=== PATIENT | female | born 1995 | race Caucasian/White ===

== ENCOUNTER 2017-07-31 21:21 | Emergency (ER) | payer OTHER ==
[~2017-07-31] VITALS: Ht 162.6 cm; Wt 89.9 kg
[~2017-07-31 21:21] MED LIST: ADDERALL30 MG PO; BACTRIM,SEPT1 TABLET PO; BENTYL20 MG PO; DESYREL 150 MG150 MG PO; FLEXERIL10 MG PO; MOTRIN600 MG PO; PREDNISONE20 MG PO; PROMETHAZINE HC25 M1 PO; SEROQUEL50 MG PO; TESSALON200 MG PO; TORADOL10 MG PO; VENTOLIN HFA18 GM IH; ZITHROMAX250 MG PO
[2017-07-31 21:24] VITALS: BP 115/74
[2017-07-31] MEDS ORDERED: ZYRTEC10 M2 PO (23:37)
[2017-07-31] MEDS ORDERED: FLONASE16 G1 BOTH NARES (23:37)
[2017-07-31] MEDS ORDERED: MOTRIN600 MG PO (23:37)
== END 2017-08-01 | disposition home or self-care (01) ==
LOC: EME 21:21
DX: T70.29XA Other effects of high altitude, initial encounter (principal); W94.39XA Exposure to other rapid changes in air pressure during descent, initial encounter; Y93.89 Activity, other specified; Y92.828 Other wilderness area as the place of occurrence of the external cause; Z88.6 Allergy status to analgesic agent
CPT/HCPCS: 99281; 99284

== ENCOUNTER 2017-08-26 20:24 | Emergency (ER) | payer OTHER ==
[~2017-08-26] VITALS: Ht 162.6 cm; Wt 87.4 kg
[~2017-08-26 20:24] MED LIST changes: +FLONASE16 G1 BOTH NARES; +ZYRTEC10 M2 PO
[2017-08-26 21:33] VITALS: BP 140/96
== END 2017-08-26 21:54 | disposition home or self-care (01) ==
LOC: EME → EDBD 20:24 → EME 21:54
DX: H66.92 Otitis media, unspecified, left ear (principal); T39.8X5A Adverse effect of other nonopioid analgesics and antipyretics, not elsewhere classified, initial encounter; F41.9 Anxiety disorder, unspecified; F90.9 Attention-deficit hyperactivity disorder, unspecified type; F43.10 Post-traumatic stress disorder, unspecified; F31.9 Bipolar disorder, unspecified; Z88.6 Allergy status to analgesic agent
CPT/HCPCS: 99281; 99283